=== PATIENT | male | born 1975 | race Caucasian/White ===

== ENCOUNTER 2024-05-08 12:46 | Emergency (ER) | payer OTHER, SELFPAY ==
[2024-05-08] VITALS (9 sets, daily range): BP systolic 123–139; BP diastolic 69–77; PULSE 55–73; RESP 9–18; TEMP 36.2; O2SAT 98–100
--- NOTE | ~2024-05-08 | XR_ITS ---
CHEST RADIOGRAPH, PA AND LATERAL CLINICAL HISTORY: CP . COMPARISON: None available TECHNIQUE: PA and lateral views of the chest. FINDINGS The cardiomediastinal silhouette is unremarkable. The lungs are clear. Visualized osseous structures and soft tissues are unremarkable. IMPRESSION: No focal infiltrate or effusion. Reviewed, dictated and finalized at location A. ING FOREMAN
--- NOTE | 2024-05-08 12:47 | ECG_ITS ---
Test Date: 2024-05-08 12:52:37 Measurements Intervals [place] Rate: 60 P: 81 MS: 149 QRS: 92 QRSD: 101 T: 68 QT: 375 QTc: 377 Interpretive Statements SINUS RHYTHM POSSIBLE LEFT ATRIAL ENLARGEMENT [-0.1mV P WAVE IN V1/V2] BORDERLINE RIGHT AXIS DEVIATION [QRS AXIS > 90] INCOMPLETE RIGHT BUNDLE BRANCH BLOCK [90+ ms QRS DURATION, TERMINAL R IN V1/V2, 40+ ms S IN I/aVL/V4/V5/V6] No previous ECG available for comparison Electronically Signed On 05-09-2024 18:12:59 HOUSE FURNISHINGS SUPERVISOR by Shan Parikh M.D.
[2024-05-08 13:04] LABS: Basophils Absolute Auto 0.1 K/mm3 (0.0-0.1); Basophils Percent Auto 0.7 % (0.2-1.2); Eosinophils Absolute Auto 0.3 K/mm3 (0-0.3); Eosinophils Percent Auto 3.1 % (0-4.4); Hematocrit 42.8 % (42.0-52.0); Hemoglobin 14.6 g/dL (14.0-18.0); Immature Granulocyte Absolute 0.01 K/mm3 (0.00-0.031); Immature Granulocyte Percent A 0.1 % (0-0.5); Lymphocytes Absolute Auto 2.01 K/mm3 (0.9-3.2); Mean Corpuscular HGB Conc 34.1 g/dl (32-36); Mean Corpuscular Hemoglobin 32.4 pg (26-34); Mean Corpuscular Volume 94.9 fl (80-100); Mean Platelet Volume 9.6 fl (7.4-10.4); Monocytes Absolute Auto 0.5 K/mm3 (0.1-0.6); Monocytes Percent Auto 6.3 % (2.6-8.5); Neutrophils Absolute Auto 5.5 K/mm3 (1.3-6.7); Neutrophils Percent Auto 65.8 % (45.5-73.1); Platelet Count Result 282 k/mm3 (150-375); Red Blood Count 4.51 M/mm3 (4.6-6.20); Red Cell Distribution Width 13.4 % (11.5-14.5); White Blood Count 8.4 K/mm3 (4.5-10.0)
[2024-05-08 13:18] LABS: Alanine Aminotransferase 10 U/L (6-50); Albumin Level 4.4 g/dL (3.5-5.1); Alkaline Phosphatase 55 U/L (38-126); Anion Gap 10 mmol/L (4-12); Aspartate Amino Transferase 20 U/L (17-59); Bilirubin,Total 0.7 mg/dL (0.2-1.3); Blood Urea Nitrogen 13 mg/dL (9-20); Calcium 9.5 mg/dL (8.4-10.2); Carbon Dioxide 27 mmol/L (22-30); Chloride 103 mmol/L (98-107); Estimated CRCL calculation 90 ml/min; Estimated Glomerular Filt Rate > 60; Glucose 108 mg/dL (65-110); Lipase 159 U/L (23-300); Potassium 3.8 mmol/L (3.4-5.0); Sodium 140 mmol/L (137-145)
[2024-05-08 13:21] LABS: INR 0.9; Prothrombin Time 12.7 Seconds (11.1-14.7)
[2024-05-08 13:22] LABS: Partial Thromboplastin Time 31.3 Seconds (22.3-36.8)
[2024-05-08 13:30] LABS: Troponin I < 0.012 ng/mL (0.000-0.034)
--- NOTE | 2024-05-08 14:31 | ED_ITS ---
HPI - Chest Pain General Chief Complaint: Chest Pain Stated Complaint: chest pain Time Seen by Provider: 05/08/24 14:17 History of Present Illness HPI narrative: 49-year-old male presents to the emergency department for left-sided chest pain that started 4 days ago. Patient states the pain started in the middle the night at 3:00 a.m. while he was straining to go to the restroom. States he began having pain in the left side of his chest with associated dizziness, diaphoresis, paleness and followed by vomiting. States the following day he woke up and had a fight with his mother that lasted all day. States they were yelling at each other all day long he has been having constant dull chest aching in the left side of his chest since. Patient states he has been very stressed and anxious. He denies shortness of breath, cough, fevers, hemoptysis radiating symptoms, exertional symptoms, lower extremity edema history of VTE, prior cardiac history. States his father of a PE but he has no cardiac disease in the family. Admits to smoking 1 pack per day for several years. Per nursing note, patient told nursing staff that the patient was seen by his surgeon at 1 point he wanted to amputate his left foot. When I asked patient about this he states that he is concerned that his father was a part of the top secret government clearance and had something implanted his left foot as child. States he was younger he had a surgery on his left foot performed in [facility] for a ?ball of vessels that grew together?. States since then he has been having swelling and pain to the foot. He has never followed up on this. Denies ETOH use. Admits to marijuana, denies other drug use. Related Data Allergies Allergy/AdvReac Type Severity Reaction Status Date / Time No Known Allergies Allergy Verified 05/08/24 13:12 Review of Systems 2 Review of Systems: All systems reviewed & are unremarkable except as noted in HPI and below Exam 2 Narrative: GENERAL: Anxious-appearing, well-nourished, and in no acute distress. HEAD: Normocephalic, atraumatic. EYES: EOMI. ENT: Nares clear, no rhinorrhea or epistaxis. Mucous membranes moist. NECK: Supple. CHEST: Clear to auscultation. No respiratory distress. HEART: Regular rate and rhythm. No murmur heard. Normal peripheral pulses. ABDOMEN: Soft, nontender, nondistended, normal active bowel sounds. EXTREMITIES:LLE: Minimal edema to the medial aspect of the foot with no warmth higher erythema, overlying skin changes, point tenderness. DP pulse 2 +. Sensation intact. Patient removal to the faculty. No BLE SKIN: Warm, dry, no rash. NEURO: No focal deficits. Alert and oriented x3 Course Vital Signs Vital signs: Vital Signs Temperature 97.2 F L 05/08/24 13:05 Pulse Rate 65 05/08/24 13:05 Respiratory Rate 18 05/08/24 13:05 Blood Pressure 139/72 05/08/24 13:05 Pulse Oximetry 100 05/08/24 13:05 Oxygen Delivery Room Air 05/08/24 13:05 Temperature 97.2 F L 05/08/24 13:05 Pulse Rate 68 05/08/24 15:01 Respiratory Rate 17 05/08/24 15:01 Blood Pressure 123/77 05/08/24 15:01 Pulse Oximetry 98 05/08/24 15:01 Oxygen Delivery Room Air 05/08/24 14:31 MDM - Chest Pain MDM Narrative Medical decision making narrative: 49-year-old male presents to emergency department for dull aching left-sided chest pain for 4 days after straining during a bowel movement 4 days ago in the getting into a large argument with his mother. Admits to feeling stress and anxiety. Vitals are stable. Patient resting comfortably in exam bed but is anxious appearing. Exam significant for the above. EKG shows normal sinus rhythm with a rate of 60 ppm, normal DC interval, normal QRS duration, normal QTC, no ischemic changes. Troponin undetectable x2. D- dimer within normal limits, wells score is low risk. CBC and chemistries are unremarkable. Lipase normal. Chest x-ray without acute cardiopulmonary findings. Patient updated on workup. On re-evaluation, patient states he is very upset that he has waited for so long and would like to leave. I discussed reassuring findings and your the reason for his wait time which included trending his troponin. Discussed his symptoms seem consistent with stress/anxiety and are atypical in nature. Advised to follow-up with PCP, referral provided. Patient voiced understanding. Discharged in stable condition. Lab Data 05/08/24 12:55 05/08/24 12:55 Labs: Lab Results 05/08/24 05/08/24 Range/Units 12:55 15:45 WBC 8.4 (4.5-10.0) K/mm3 RBC 4.51 L (4.6-6.20) M/mm3 Hgb 14.6 (14.0-18.0) g/dL Hct 42.8 (42.0-52.0) % MCV 94.9 (80-100) fl MCH 32.4 (26-34) pg MCHC 34.1 (32-36) g/dl RDW 13.4 (11.5-14.5) % Plt Count 282 (150-375) k/mm3 MPV 9.6 (7.4-10.4) fl Immature Gran % (Auto) 0.1 (0-0.5) % Neut % (Auto) 65.8 (45.5-73.1) % Lymph % (Auto) 24.0 (18.3-44.2) % [place] % (Auto) 6.3 (2.6-8.5) % Eos % (Auto) 3.1 (0-4.4) % Baso % (Auto) 0.7 (0.2-1.2) % Lymph # (Auto) 2.01 (0.9-3.2) K/mm3 [place] # (Auto) 0.5 (0.1-0.6) K/mm3 Eos # (Auto) 0.3 (0-0.3) K/mm3 Baso # (Auto) 0.1 (0.0-0.1) K/mm3 Abs Immat Gran (auto) 0.01 (0.00-0.031) K/mm3 Absolute Neuts (auto) 5.5 (1.3-6.7) K/mm3 Absolute Nucleated RBC 0.000 (0.0-0.012) K/mm3 Nucleated RBC % 0.0 (0.0-0.2) % PT 12.7 (11.1-14.7) Seconds INR 0.9 APTT 31.3 (22.3-36.8) Seconds D-Dimer < 0.27 (<0.48) ug/mL Sodium 140 (137-145) mmol/L Potassium 3.8 (3.4-5.0) mmol/L Chloride 103 (98-107) mmol/L Carbon Dioxide 27 (22-30) mmol/L Anion Gap 10 (4-12) mmol/L BUN 13 (9-20) mg/dL Creatinine 0.74 (0.7-1.3) mg/dL Estim Creat Clear Calc 90 ml/min Estimated GFR > 60 (59 - ) Glucose 108 (65-110) mg/dL Calcium 9.5 (8.4-10.2) mg/dL Total Bilirubin 0.7 (0.2-1.3) mg/dL AST 20 (17-59) U/L ALT 10 (6-50) U/L Alkaline Phosphatase 55 (38-126) U/L Troponin I < 0.012 < 0.012 (0.000-0.034) ng/mL NT-Pro-B Natriuret Pep 28 (19.9-100) pg/mL Total Protein 7.0 (6.3-8.2) g/dL Albumin 4.4 (3.5-5.1) g/dL Lipase 159 (23-300) U/L Discharge Plan Discharge Clinical Impression: Atypical chest pain Patient Disposition: Home, Self-Care Condition: Stable Instructions: Antibiotic Form, Chest Pain (ED) Additional Instructions: Follow-up with the primary care provider. Return to the emergency department if you develop new or worsening symptoms. Patient Language: Mongolian Follow-up/Referrals: PHYSICIAN NOT ON STAFF,NONSTAFF [Non-Staff] - Al Ngo MD [Physician] -
[2024-05-08 14:59] LABS: D Dimer < 0.27 ug/mL (<0.48)
--- NOTE | 2024-05-08 15:19 | ECG_ITS ---
Test Date: 2024-05-08 15:53:02 Measurements Intervals [place] Rate: 59 P: 78 GA: 163 QRS: 92 QRSD: 94 T: 71 QT: 396 QTc: 394 Interpretive Statements SINUS BRADYCARDIA BORDERLINE RIGHT AXIS DEVIATION [QRS AXIS > 90] INCOMPLETE RIGHT BUNDLE BRANCH BLOCK [90+ ms QRS DURATION, TERMINAL R IN V1/V2, 40+ ms S IN I/aVL/V4/V5/V6] Compared to ECG 05/08/2024 12:52:37 Sinus rhythm no longer present Electronically Signed On 05-09-2024 18:11:40 NON DESTRUCTIVE TESTING INSPECTOR by Shan Parikh M.D.
[2024-05-08 15:33] LABS: NT Pro B Type Natriuretic Pept 28 pg/mL (19.9-100)
[2024-05-08 16:17] LABS: Troponin I < 0.012 ng/mL (0.000-0.034)
--- NOTE | 2024-05-08 16:35 | PC.NURSE ---
Pt stated multiple times today that he had too many people that depend on him including his mom, a friend, and the friends brother along with other people. this RN sat with the patient discussing stress relief and options for people to talk to to help him manage caring for himself while caring for other people. offered resources to the patient and he declined saying I do not understand how that would even be helpful Patient began asking if his at home blood pressure cuff could be broken because his blood pressure was WNL and at home it's excessively high patient had his blood pressure cuff that he uses at home so this rn showed him the appropriate placement and use. patient was provided a sandwhich and drink. the patient then began yelling out into the hallway that I am leaving this bullshit place right now this RN went into the patients room to try to explain that we were waiting on repeat troponin lab results to result and that when there is tissue damage within the heart sometimes the first blood test results aren't changed but the second ones are able to look at the trend of the cardiac enzyme labs. patient began yelling that No one here even gives a shit about him and it's just about collecting insurance payments patient continued to raise his voice and this RN explained that it's not appropriate to yell at staff members. patient was discharged by the PA and was walked out of the emergency department by a tech.
--- OUTSIDE RECORDS SUMMARY | 2024-05-12 10:44 | XMS_ITS | Referral Summary ---
Author Organization [facility] Address [address] [place] [id number] Care Team Providers Care Director Of Graduate Admissions Name Role Phone No, Physician Primary Care Provider [phone] Allergies No known active allergies Medications ondansetron ODT (ZOFRAN-ODT) 4 mg disintegrating tablet Take 1 tablet (4 mg total) by mouth every 8 (eight) hours as needed for nausea or vomiting 20 tablet 2 Active Social History Tobacco Use Types Packs/Day Years Used Date Smoking Tobacco: Never Assessed Personal Safety Answer Date Recorded Getting School Help Needed Not on file 07/04 Sex and Gender Information Value Date Recorded Sex Assigned at Not on file 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 Gender Identity Not on file Sexual Orientation Not on file Last Filed Vital Signs Vital Sign Reading Time Taken Comments Blood Pressure 123/85 12/29/2021 6:55 PM CDT Pulse 64 12/29/2021 6:55 PM CDT Temperature 36.9 ??C (98.4 ??F) 12/29/2021 1:55 PM CD T Respiratory Rate 26 12/29/2021 6:55 PM CDT Oxygen Saturation 99% 12/29/2021 6:55 PM CDT Inhaled Oxygen Concentration - - Weight 61.2 kg (135 lb) 12/29/2021 2:02 PM CDT Height 185.4 cm (6' 1 ) 12/29/2021 2:02 PM CDT Body Mass Index 17.81 12/29/2021 2:02 PM CDT Plan of Treatment Not on file [place] [address] [place] [address] OFFICE [facility] Care Teams Director Of Graduate Admissions Relationship Specialty Start Date End Date No, Physician PCP - General 12/29/21
--- OUTSIDE RECORDS SUMMARY | 2024-05-12 10:44 | XMS_ITS | Clinical Summary ---
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 OFFICE [facility] CARE [facility] Care Teams Resort Housekeeper Relationship Specialty Start Date End Date No, Physician PCP - General 12/29/21
--- OUTSIDE RECORDS SUMMARY | 2024-05-12 10:44 | XMS_ITS | Continuity of Care Document ---
Author Name [facility] Organization [facility] Care Team Providers Care Paving And Surfacing Labourer Name Role Phone [facility] Unavailable Unavailable Problems Combined list of problems from Department of [facility] and Veterans Affairs facilities. It does not include entries that were removed or entered in error. Problem Status Onset Date Problem Type Date of Resolution Comments Source ACUTE BRONCHITIS Active Condition [facility] Acute sinusitis (ICD-9-CM 461.9) Active Condition [facility] Anxiety Active Condition [facility] Blurred vision Active Condition [facility] Dental abscess Active Condition [facility] Depression Active Condition [facility] Economic Problem Active Condition [facility] Foot Pain (ICD-9-CM 719.47) Active Condition [facility] Hearing loss (SNOMED CT 75433124) Active Condition [facility] Long-term current use of cannabis (SNOMED CT 762122976903206) Active Condition [facility] Nicotine Dependence Active Condition [facility] OTHER DENTAL CARIES Active Condition [facility] Pain in joint involving ankle and foot Active Condition [facility] Pain in left foot Active Condition [facility] Unemployment Active Condition [facility] Unresolved Active Condition [facility] Varicose veins Active Condition [facility] Vitamin D deficiency (SNOMED CT 77218281) Active Condition [facility] Medications Combined list of outpatient medications from Department of [facility] and [facility] facilities.Medications provided include 1) outpatient medications from the last 15 months, and 2) patient-reported medications. Medication Details Route Status Patient Instructions Prescription Expires Prescription Number Last Dispense Date Ordering Provider Order Date Order Qty Source CHOLECALCIF BARBARA 50MCG (2,000UNIT) TAB TAKE TWO TABLETS BY MOUTH ONCE A DAY ORAL ACTIVE WEEKS,JIMENEZ A L 2019 [facility] CHOLECALCIF BARBARA 50MCG (2,000UNIT) TAB TAKE ONE TABLET BY MOUTH ONCE A DAY ORAL ACTIVE WEEKS,JIMENEZ A L 2019 [facility] Immunizations Combined list of available immunizations from the Department of [facility] and Veterans Affairs facilities. Immunization Series Date Given Administered By Site Reaction Lot Number CVX Code Drug Donor Specialist Status Comments Source PNEUMOCOCCAL POLYSACCHARID E PPV23 2018 33 complet ed [facility] TDAP 2010 115 complet ed Left Deltoid [facility] Encounters Combined list of: 1) Encounters from Department of Veterans Affairs facilities going back up to thelast 18 months. 2) Encounters from the Department of Defense facilities going back up to 280 months. Location Location Details Encounter Type Encounter Number Reason For Visit Attending Provider ADM Date DC Date Status Disposition Source [facility] Outpatient Encounter [id number] ALISHA LUNA 05/10 [facility] Social History Combined list of available smoking, tobacco, and other social history from Department of [facility] and Veterans Affairs facilities. Social History Type Response Date Comment Sourc e Tobacco smoking status NHIS VA-TOBACCO DOESNT USE WI 30 MIN WAKEUP 09/25/2021 [facility] History of tobacco use [place]-TOBACCO USE ADVICE 09/25/2021 [facility] History of tobacco use VA-TOBACCO USER EVERY DAY 06/22/2020 [facility] History of tobacco use [place]-TOBACCO USE CASTING INSPECTOR NO 07/12/2019 [facility] History of tobacco use VA-TOBACCO USER EVERY DAY 11/24/2017 [facility] History of tobacco use TOBACCO USER OFFERED MEDS 09/21/2017 [facility] History of tobacco use LIFETIME NON-USER OF TOBACCO 11/10/2014 1pack per day [facility] History of tobacco use CURRENT TOBACCO USER 05/30/2013 [facility] History of tobacco use CURRENT TOBACCO USER 08/05/2012 [facility] History of tobacco use TOBACCO CURRENT USER 10/23/2010 today [facility] History of tobacco use CURRENT TOBACCO USER 06/05/2010 [facility] This section is an empty social history section. [facility] Plan of Care List of future care activities from Department of Veterans Affairs facilities. Additional future care activities may be listed in the Assessment and Plan section. Date/Time Care Activity Care Activity Detail Facili ty 04/07/2024 Laboratory - Power Superintendent ry Order OCCULT BLOOD FIT X1 SCREEN (MFP ONLY) STOOL FECES SP Nikki [facility]HMAN [facility]
--- OUTSIDE RECORDS SUMMARY | 2024-05-12 10:44 | XMS_ITS | Continuity of Care Document ---
Author Name [facility] Organization [facility] Care Team Providers Care Crop Or Grain Farmworker Name Role Phone [facility] Unavailable Unavailable Problems Combined list of problems from Department of [facility] and Veterans Affairs facilities. It does not include entries that were removed or entered in error. Problem Status Onset Date Problem Type Date of Resolution Comments Source ACUTE BRONCHITIS Active Condition [facility] Acute sinusitis (ICD-9-CM 461.9) Active Condition [facility] Anxiety Active Condition [facility] Blurred vision Active Condition [facility] Dental abscess Active Condition [facility] Depression Active Condition [facility] Economic Problem Active Condition [facility] Foot Pain (ICD-9-CM 719.47) Active Condition [facility] Hearing loss (SNOMED CT 74988026) Active Condition [facility] Long-term current use of cannabis (SNOMED CT 973106820856274) Active Condition [facility] Nicotine Dependence Active Condition [facility] OTHER DENTAL CARIES Active Condition [facility] Pain in joint involving ankle and foot Active Condition [facility] Pain in left foot Active Condition [facility] Unemployment Active Condition [facility] Unresolved Active Condition [facility] Varicose veins Active Condition [facility] Vitamin D deficiency (SNOMED CT 17247671) Active Condition [facility] Medications Combined list of outpatient medications from Department of [facility] and [facility] facilities.Medications provided include 1) outpatient medications from the last 15 months, and 2) patient-reported medications. Medication Details Route Status Patient Instructions Prescription Expires Prescription Number Last Dispense Date Ordering Provider Order Date Order Qty Source CHOLECALCIF BARBARA 50MCG (2,000UNIT) TAB TAKE TWO TABLETS BY MOUTH ONCE A DAY ORAL ACTIVE WEEKS,JIMENEZ A L 2019 [facility] CHOLECALCIF BARBARA 50MCG (2,000UNIT) TAB TAKE ONE TABLET BY MOUTH ONCE A DAY ORAL ACTIVE WEEKS,JIMENEZ A L 2019 [facility] Immunizations Combined list of available immunizations from the Department of [facility] and Veterans Affairs facilities. Immunization Series Date Given Administered By Site Reaction Lot Number CVX Code Drug Lcsw Status Comments Source PNEUMOCOCCAL POLYSACCHARID E PPV23 2018 33 complet ed [facility] TDAP 2010 115 complet ed Left Deltoid [facility] Encounters Combined list of: 1) Encounters from Department of Veterans Affairs facilities going back up to thelast 18 months. 2) Encounters from the Department of Defense facilities going back up to 280 months. Location Location Details Encounter Type Encounter Number Reason For Visit Attending Provider ADM Date DC Date Status Disposition Source [facility] Outpatient Encounter [id number] ALISHA LUNA 05/10 [facility] Social History Combined list of available smoking, tobacco, and other social history from Department of [facility] and Veterans Affairs facilities. Social History Type Response Date Comment Sourc e Tobacco smoking status NHIS VA-TOBACCO DOESNT USE WI 30 MIN WAKEUP 09/25/2021 [facility] History of tobacco use NE-TOBACCO USE ADVICE 09/25/2021 [facility] History of tobacco use VA-TOBACCO USER EVERY DAY 06/22/2020 [facility] History of tobacco use NE-TOBACCO USE DISC PAD GRINDER NO 07/12/2019 [facility] History of tobacco use VA-TOBACCO USER EVERY DAY 11/24/2017 [facility] History of tobacco use TOBACCO USER OFFERED MEDS 09/21/2017 [facility] History of tobacco use LIFETIME NON-USER OF TOBACCO 11/10/2014 1pack per day [facility] History of tobacco use CURRENT TOBACCO USER 05/30/2013 [facility] History of tobacco use CURRENT TOBACCO USER 08/05/2012 [facility] History of tobacco use TOBACCO CURRENT USER 10/23/2010 today [facility] History of tobacco use CURRENT TOBACCO USER 06/05/2010 [facility] This section is an empty social history section. [facility] Plan of Care List of future care activities from Department of Veterans Affairs facilities. Additional future care activities may be listed in the Assessment and Plan section. Date/Time Care Activity Care Activity Detail Facili ty 04/07/2024 Laboratory - Office Machine Repair Shop Supervisor ry Order OCCULT BLOOD FIT X1 SCREEN (MFP ONLY) STOOL FECES SP Nikki [facility]HMAN [facility]
== END 2024-05-08 16:50 | disposition home or self-care (01) ==
PROVIDERS: Emergency Medicine; Emergency Provider Physician Assistant
DX: R07.89 Other chest pain (principal)
CPT/HCPCS: 36415; 71046; 80053; 83690; 83880; 84484; 85025; 85380; 85610; 85730; 93005; 99284